=== PATIENT | female | born 1985 | race Caucasian/White ===

== ENCOUNTER 2018-01-18 01:00 | Emergency (ER) | payer MEDICAID, OTHER ==
[~2018-01-18] VITALS: Ht 162.6 cm; Wt 86.2 kg
[2018-01-18 01:21] VITALS: BP 122/75
[2018-01-18] MEDS ORDERED: cefTRIAXone SOD 1,000 MG VL IM ONE (02:15)
[2018-01-18] MEDS ORDERED: PHENAZOPYRIDINE HCL 100 MG TAB PO ONE (02:15)
== END 2018-01-18 02:29 | disposition home or self-care (01) ==
LOC: ER 01:06
DX: N76.0 Acute vaginitis (principal); B37.3 Candidiasis of vulva and vagina; N39.0 Urinary tract infection, site not specified
CPT/HCPCS: 96372; 99283; J0696

== ENCOUNTER 2019-09-18 20:01 | Emergency (ER) | payer MEDICAID, SELFPAY ==
[~2019-09-18] VITALS: Ht 162.6 cm; Wt 93.0 kg
[2019-09-18] MEDS ORDERED: ACETAMINOPHEN 325 MG TAB PO ONE (22:00)
[2019-09-18 22:29] LABS: Basophils # (auto) 0 10 ^3/uL (0-0.2); Basophils % (auto) 0.2 % (0.0-2.0); Eosinophils # (auto) 0.1 10 ^3/uL (0-0.8); Eosinophils % (auto) 0.7 % (0.0-7.0); Hematocrit 40.6 % (36.0-46.0); Hemoglobin 13.6 g/dL (12.2-16.2); Lymphocytes # (auto) 2.3 10 ^3/uL (0.4-5.4); Lymphocytes % (auto) 17.3 % (10.0-50.0); Mean Corpuscular Hemoglobin 29.6 pg (28.0-32.0); Mean Corpuscular Hgb Conc. 33.6 g/dL (32.0-36.0); Mean Corpuscular Volume 88.1 fL (80.0-100.0); Monocytes # (auto) 1.3 10 ^3/uL (0-1.3); Monocytes % (auto) 9.6 % (0.0-12.0); Neutrophils # (auto) 9.7 10 ^3/uL (1.6-8.6); Neutrophils % (auto) 72.2 % (37.0-80.0); Nucleated Red Blood Cells % 0.2 %; Platelet Count (auto) 268 10^3/uL (140-450); Red Blood Cells 4.61 10^6/uL (4.0-5.20); White Blood Cell 13.4 10^3/uL (4.4-10.8)
[2019-09-18 22:44] LABS: Urine Bacteria NONE SEEN /hpf (None Seen); Urine Blood 2+ /uL (Negative); Urine Mucus FEW (None Seen); Urine Specific Gravity 1.021 (1.001-1.035); Urine WBC 37 /hpf (0 - 5)
[2019-09-18 22:51] LABS: Albumin 3.7 g/dL (3.4-5.0); BUN/Creatinine Ratio 13.3; Calcium 8.6 mg/dL (8.5-10.1); Potassium 3.3 mmol/L (3.5-5.1)
[2019-09-18 22:53] LABS: Bilirubin, Total 0.5 mg/dL (0.2-1.0); Total Protein 7.8 g/dL (6.4-8.2)
[2019-09-19] MEDS ORDERED: cefTRIAXone SOD 1,000 MG VL IM ONE (00:45)
[2019-09-19 01:59] VITALS: BP 113/70
== END 2019-09-19 02:56 | disposition home or self-care (01) ==
LOC: ER 20:01
DX: U07.1 COVID-19 (principal); N39.0 Urinary tract infection, site not specified
CPT/HCPCS: 36415; 71045; 76856; 80053; 81001; 81025; 82728; 84702; 85025; 87070; 87635; 87804; 87880; 96372; 99001

== ENCOUNTER 2021-04-26 07:25 | Emergency (ER) | payer MEDICAID ==
[~2021-04-26] VITALS: Ht 160 cm; Wt 95.3 kg
[2021-04-26] MEDS ORDERED: SODIUM CHLORIDE 0.9% 1,000 ML IV ONE (07:45)
[2021-04-26 07:59] LABS: Urine Bacteria FEW /hpf (None Seen); Urine Blood Negative /uL (Negative); Urine Specific Gravity 1.013 (1.001-1.035); Urine WBC 1 /hpf (0 - 5)
[2021-04-26 08:05] LABS: Basophils # (auto) 0 10 ^3/uL (0-0.2); Basophils % (auto) 0.5 % (0.0-2.0); Eosinophils # (auto) 0.1 10 ^3/uL (0-0.8); Hematocrit 44.2 % (36.0-46.0); Hemoglobin 14.7 g/dL (12.2-16.2); Lymphocytes % (auto) 26.2 % (10.0-50.0); Mean Corpuscular Hemoglobin 29.9 pg (28.0-32.0); Mean Corpuscular Hgb Conc. 33.2 g/dL (32.0-36.0); Mean Corpuscular Volume 89.9 fL (80.0-100.0); Monocytes # (auto) 0.5 10 ^3/uL (0-1.3); Monocytes % (auto) 6.7 % (0.0-12.0); Neutrophils # (auto) 5.1 10 ^3/uL (1.6-8.6); Neutrophils % (auto) 65.6 % (37.0-80.0); Nucleated Red Blood Cells % 0.1 %; Red Blood Cells 4.92 10^6/uL (4.0-5.20); Red Cell Distribution Width 13.4 % (11.8-14.3); White Blood Cell 7.8 10^3/uL (4.4-10.8)
[2021-04-26 08:15] LABS: Albumin 3.6 g/dL (3.4-5.0); Calcium 8.8 mg/dL (8.5-10.1); Potassium 4.5 mmol/L (3.5-5.1)
[2021-04-26 08:19] LABS: Bilirubin, Total 0.5 mg/dL (0.2-1.0); Total Protein 7.7 g/dL (6.4-8.2)
[2021-04-26] MEDS ORDERED: ONDANSETRON HCL 4 MG/2 ML VIAL IV ONE (11:00)
[2021-04-26] MEDS ORDERED: KETOROLAC TROMETH 30 MG/ML 1ML VIAL IV ONE (11:00)
[2021-04-26] MEDS ORDERED: FUROSEMIDE 20 MG/2 ML VIAL IV ONE (11:00)
[2021-04-26] MEDS ORDERED: TAMSULOSIN HYDROCHLORIDE 0.4 MG CAP PO ONE (11:00)
[2021-04-26] MEDS ORDERED: cefTRIAXone 1GM/50ML D5W 50 ML IV ONE (12:15)
[2021-04-26 13:19] VITALS: BP 109/56
== END 2021-04-26 13:27 | disposition home or self-care (01) ==
LOC: ER 07:25
DX: N20.0 Calculus of kidney (principal); N39.0 Urinary tract infection, site not specified
CPT/HCPCS: 36415; 74176; 80053; 81001; 83036; 84484; 85025; 87086; 96361; 96365; 96375; 99284; J0696; J1885; J1940; J7030; J2405

== ENCOUNTER 2021-06-06 14:42 | Emergency (ER) | payer MEDICAID ==
[~2021-06-06] VITALS: Ht 160 cm; Wt 94.8 kg
[2021-06-06 16:14] VITALS: BP 141/91
[2021-06-06] MEDS ORDERED: METH4PAK PO (16:34)
[2021-06-06] MEDS ORDERED: ACET-1080 PO (16:34)
[2021-06-06] MEDS ORDERED: AZIT500T66 PO (16:34)
[2021-06-06] MEDS ORDERED: ACETAMINOPHEN 500 MG TAB PO ONE (16:45)
[2021-06-06] MEDS ORDERED: cefTRIAXone SOD 1,000 MG VL IM ONE (16:45)
== END 2021-06-06 16:57 | disposition home or self-care (01) ==
LOC: ER 14:42
DX: U07.1 COVID-19 (principal); J20.8 Acute bronchitis due to other specified organisms; F17.210 Nicotine dependence, cigarettes, uncomplicated
CPT/HCPCS: 36415; 71045; 87426; 96372; 99284; J0696; J7030

== ENCOUNTER 2021-08-22 07:49 | Emergency (ER) | payer MEDICAID ==
[~2021-08-22] VITALS: Ht 160 cm; Wt 93.0 kg
[~2021-08-22 07:49] MED LIST: ACET-1080 PO; AZIT500T66 PO; METH4PAK PO
[2021-08-22 09:06] VITALS: BP 137/90
[2021-08-22] MEDS ORDERED: IBUP800T27 PO (09:13)
== END 2021-08-22 10:01 | disposition home or self-care (01) ==
LOC: ER 07:49
DX: M72.2 Plantar fascial fibromatosis (principal); F17.210 Nicotine dependence, cigarettes, uncomplicated; Z79.1 Long term (current) use of non-steroidal anti-inflammatories (NSAID); Z79.2 Long term (current) use of antibiotics; Z79.899 Other long term (current) drug therapy
CPT/HCPCS: 73630

== ENCOUNTER 2021-10-17 21:28 | Emergency (ER) | payer MEDICAID ==
[~2021-10-17] VITALS: Ht 160 cm; Wt 90.7 kg
[~2021-10-17 21:28] MED LIST changes: +IBUP800T27 PO
[2021-10-17] MEDS ORDERED: PRED1PAK7 PO (23:32)
[2021-10-17] MEDS ORDERED: DexAMETHasone SOD PHOS 10MG/1ML VIAL INJ IM ONE (23:45)
[2021-10-17] MEDS ORDERED: KETOROLAC TROMETH 60MG/2ML VIAL IM ONE (23:45)
[2021-10-18 03:45] VITALS: BP 140/87
== END 2021-10-18 03:23 | disposition home or self-care (01) ==
LOC: ER 21:28
DX: S96.911A Strain of unspecified muscle and tendon at ankle and foot level, right foot, initial encounter (principal); M77.9 Enthesopathy, unspecified; F17.210 Nicotine dependence, cigarettes, uncomplicated; Z79.2 Long term (current) use of antibiotics; Z79.1 Long term (current) use of non-steroidal anti-inflammatories (NSAID); Z79.899 Other long term (current) drug therapy; X58.XXXA Exposure to other specified factors, initial encounter; Y93.89 Activity, other specified; Y92.89 Other specified places as the place of occurrence of the external cause; Y99.8 Other external cause status
CPT/HCPCS: 73610; 96372; 99284; J1100; J1885